=== PATIENT | female | born 1945 | race Caucasian/White ===

== ENCOUNTER 2017-04-19 07:58 | Emergency (ER) | payer MEDICARE, OTHER ==
[~2017-04-19] VITALS: Ht 165.1 cm; Wt 75.0 kg
[~2017-04-19 07:58] MED LIST: ASPIRIN 81M81 MG/TA2 PO; CO Q-1010 M1 PO; FLEXERIL5 MG PO; GLUCOPHAGE1000 MG PO; HYZAAR 12.5 MG-1 TAB PO; JANUVIA 100MG100 MG PO; MEGA RED PO; MOBIC15 MG PO; NATURE'S BLE1000 MCG PO; NORCO 325 MG-51 TAB PO; TENORMIN 2525 MG/TAB PO; ZETIA 10MG TAB10 MG PO
[2017-04-19 08:05] VITALS: BP 160/70; PULSE 62; TEMP 97.5
[2017-04-19] MEDS ORDERED: CRESTOR5 MG PO (08:30)
[2017-04-19] MEDS ORDERED: CYMBALTA 30MG30 MG PO (08:30)
[2017-04-19] MEDS ORDERED: CALCIUM 600MG+D1 TAB PO (08:31)
[2017-04-19] MEDS ORDERED: MEGA RED PO (08:32)
[2017-04-19] MEDS ORDERED: COENZYME Q-10100 M1 PO (08:34)
[2017-04-19] MEDS ORDERED: AMOXICILLIN 8751 TAB PO (08:35)
[2017-04-19] MEDS ORDERED: ASPIRIN 81M81 MG/TA2 PO (08:58)
[2017-04-19] MEDS ORDERED: TENORMIN 2525 MG/TAB PO (08:58)
[2017-04-19] MEDS ORDERED: GLUCOPHAGE XR750 MG PO (08:59)
[2017-04-19] MEDS ORDERED: JANUVIA 100MG100 MG PO ×2 (09:01→09:08)
[2017-04-19] MEDS ORDERED: COZAAR 25MG25 MG/TAB PO (09:06)
[2017-04-19] MEDS ORDERED: MOBIC15 MG PO (09:07)
[2017-04-19] MEDS ORDERED: NATURE'S BLE1000 MCG PO (09:08)
== END 2017-04-19 09:09 | disposition home or self-care (01) ==
LOC: COL.ER 07:58
DX: S01.511A Laceration without foreign body of lip, initial encounter (principal); I10 Essential (primary) hypertension; E78.5 Hyperlipidemia, unspecified; Z23 Encounter for immunization; Z98.890 Other specified postprocedural states; Z79.84 Long term (current) use of oral hypoglycemic drugs; Z79.82 Long term (current) use of aspirin; W54.0XXA Bitten by dog, initial encounter; Y92.009 Unspecified place in unspecified non-institutional (private) residence as the place of occurrence of the external cause

== ENCOUNTER → 2020-02-14 | Outpatient (CLI) | payer MEDICARE ==
[~2020-02-14] MED LIST changes: +AMOXICILLIN 8751 TAB PO; +CALCIUM 600MG+D1 TAB PO; +COENZYME Q-10100 M1 PO; +COZAAR 25MG25 MG/TAB PO; +CRESTOR5 MG PO; +CYMBALTA 30MG30 MG PO; +GLUCOPHAGE XR750 MG PO
== END ==
LOC: MC.RAD 10:15
DX: Z12.31 Encounter for screening mammogram for malignant neoplasm of breast (principal)

== ENCOUNTER → 2020-11-23 | Outpatient (CLI) | payer MEDICARE, OTHER | LOC: COL.VAS 07:44 | DX: I10 Essential (primary) hypertension (principal); I70.1 Atherosclerosis of renal artery ==

== ENCOUNTER → 2020-12-07 | Outpatient (CLI) | payer MEDICARE, OTHER | LOC: COL.RAD 10:34 | DX: Q89.9 Congenital malformation, unspecified (principal); I10 Essential (primary) hypertension; Z90.49 Acquired absence of other specified parts of digestive tract | CPT/HCPCS: Q9967 ==

== ENCOUNTER 2021-01-16 15:10 | Emergency (ER) | payer MEDICARE, OTHER ==
[~2021-01-16] VITALS: Ht 165.1 cm; Wt 76.4 kg
[2021-01-16 15:43] VITALS: TEMP 98.2
[2021-01-16 16:01] LABS: BASO % 0.7 % (0.0-2.0); EOS # 0.1 K/mm3 (0.0-0.7); EOS % 1.4 % (0-4.0); GRAN # 2.9 K/mm3 (1.4-6.5); GRAN % 50.5 % (42.2-75.2); HEMOGLOBIN 12.4 g/dl (12.5-16.0); LYMPH # 2.3 K/mm3 (1.2-3.4); LYMPH % 40.3 % (20.0-51.0); MEAN CELL VOLUME 87 fl (80.0-100.0); MEAN CORPUSCULAR HEMOGLOBIN 30 pg (27.0-31.0); MEAN CORPUSCULAR HGB CONC 35 g/dl (33.0-37.0); MEAN PLATELET VOLUME 9.3 fl (7.4-10.4); MONO # 0.4 K/mm3 (0.1-0.6); MONO % 6.9 % (1.7-9.3); PLATELET COUNT 264 K/mm3 (130-400); RED BLOOD COUNT 4.09 M/mm3 (4.10-5.30); REDCELL DISTRIBUTION WIDTH-CV 13.2 % (11.5-14.5)
[2021-01-16 16:02] LABS: HEMATOCRIT 35.7 % (37.0-47.0)
[2021-01-16 16:23] LABS: ALANINE AMINOTRANSFERASE 15 U/L (0-55); ALBUMIN 4.1 gm/dL (3.4-4.8); ANION GAP 9 mmol/L (7-16); AST,SGOT 15 U/L (5-34); BILIRUBIN,TOTAL 0.4 mg/dL (0.2-1.2); BLOOD UREA NITROGEN 20 mg/dL (10-20); CALCIUM 9.9 mg/dL (8.4-10.2); CARBON DIOXIDE 22 mmol/L (23-31); CHLORIDE 103 mmol/L (98-107); GLUCOSE 113 mg/dL (70-99); POTASSIUM 4.2 mmol/L (3.5-4.5); SODIUM 134 mmol/L (136-145); TOTAL PROTEIN 7.8 gm/dL (6.2-8.1)
[2021-01-16 16:31] LABS: TROPONIN-I < 0.010 ng/mL (0.00-0.033)
[2021-01-16 16:38] LABS: ALKALINE PHOSPHATASE 62 U/L (40-150)
[2021-01-16 17:40] VITALS: BP 180/80; PULSE 80
== END 2021-01-16 17:44 | disposition home or self-care (01) ==
LOC: COL.ER 15:10
PROVIDERS: Emergency Medicine
DX: I95.1 Orthostatic hypotension (principal); I10 Essential (primary) hypertension; E11.9 Type 2 diabetes mellitus without complications; G89.29 Other chronic pain; M54.9 Dorsalgia, unspecified; Z79.84 Long term (current) use of oral hypoglycemic drugs; Z79.899 Other long term (current) drug therapy
CPT/HCPCS: J7030

== ENCOUNTER → 2023-04-29 | Outpatient (CLI) | payer MEDICARE, OTHER ==
[~2023-04-29] MED LIST changes: +COREG12.5 MG; +ELIQUIS 5MG PO; +NORVASC 5MG5 MG/TAB PO
== END ==
LOC: MC.RAD 09:52
DX: Z12.31 Encounter for screening mammogram for malignant neoplasm of breast (principal)

== ENCOUNTER → 2023-05-29 | Outpatient (CLI) | payer MEDICARE, OTHER ==
[~2023-05-29] MED LIST changes: +Iohexol 300 - 10 ML VIAL ONE
== END ==
LOC: MHCPAIN 09:25
DX: M46.1 Sacroiliitis, not elsewhere classified (principal); M53.3 Sacrococcygeal disorders, not elsewhere classified; M54.50 Low back pain, unspecified
CPT/HCPCS: G0260; J0665; J1040; Q9967

== ENCOUNTER → 2023-06-17 | Outpatient (CLI) | payer MEDICARE, OTHER ==
[~2023-06-17] MED LIST changes: -Iohexol 300 - 10 ML VIAL ONE
== END ==
LOC: MHCPAIN 10:08
DX: M47.897 Other spondylosis, lumbosacral region (principal); M96.1 Postlaminectomy syndrome, not elsewhere classified
CPT/HCPCS: G0463

== ENCOUNTER → 2023-06-23 | Outpatient (CLI) | payer MEDICARE, OTHER ==
[~2023-06-23] MED LIST changes: +Atropine 1 MG/10 ML SYRINGE IV ONE; +Glycopyrrolate 0.2 MG/ML 1 ML VIAL ONE; +Iohexol 300 - 10 ML VIAL ONE; +Lidocaine PF 2% (20 MG/ML) 2 ML VIAL ONE; +ePHEDrine 50 MG/10 ML VIAL IV ONE
== END ==
LOC: MHCPAIN 11:07
DX: M54.17 Radiculopathy, lumbosacral region (principal); M54.50 Low back pain, unspecified; E11.9 Type 2 diabetes mellitus without complications; Z79.84 Long term (current) use of oral hypoglycemic drugs
CPT/HCPCS: J0461; J1100; Q9967

== ENCOUNTER → 2023-08-21 | Outpatient (CLI) | payer MEDICARE, OTHER ==
[~2023-08-21] MED LIST changes: -Atropine 1 MG/10 ML SYRINGE IV ONE; -Glycopyrrolate 0.2 MG/ML 1 ML VIAL ONE; -Iohexol 300 - 10 ML VIAL ONE; -Lidocaine PF 2% (20 MG/ML) 2 ML VIAL ONE; -ePHEDrine 50 MG/10 ML VIAL IV ONE
== END ==
LOC: MHCPAIN 09:11
DX: M47.817 Spondylosis without myelopathy or radiculopathy, lumbosacral region (principal); M54.50 Low back pain, unspecified

== ENCOUNTER → 2023-08-25 | Outpatient (CLI) | payer MEDICARE, OTHER | LOC: MHCPAIN 10:00 | DX: M54.17 Radiculopathy, lumbosacral region (principal); Z98.1 Arthrodesis status; M41.86 Other forms of scoliosis, lumbar region; M47.896 Other spondylosis, lumbar region | CPT/HCPCS: G0463 ==

== ENCOUNTER → 2023-09-11 | Outpatient (CLI) | payer MEDICARE, OTHER | LOC: MHCPAIN 09-10 17:51 | DX: M47.817 Spondylosis without myelopathy or radiculopathy, lumbosacral region (principal); M54.50 Low back pain, unspecified; Z98.1 Arthrodesis status | CPT/HCPCS: J0665 ==

== ENCOUNTER → 2023-10-16 | Outpatient (CLI) | payer MEDICARE ==
[~2023-10-16] MED LIST changes: +ALEVE 220MG220 MG PO; +COREG 25MG25 MG/TAB PO; +COZAAR100 MG PO; +GLUCOPHAGE500 MG/TAB PO; +KRILL OIL 5001 EACH PO; +Lidocaine PF 2% (20 MG/ML) 5 ML VIAL ONE; +Midazolam 2 MG/2 ML VIAL ONE; +PREVAGEN PO; +PRILOSEC 20MG20 MG PO; +TYLENOL PM EXTR1 TA1 PO; +fentaNYL 50 MCG/ML 2 ML VIAL ONE
== END ==
LOC: MHCPAIN 08:27
DX: M47.817 Spondylosis without myelopathy or radiculopathy, lumbosacral region (principal); M54.50 Low back pain, unspecified; Z98.1 Arthrodesis status
CPT/HCPCS: J0665; J2250; J3010

== ENCOUNTER → 2023-10-20 | Outpatient (CLI) | payer MEDICARE, OTHER ==
[~2023-10-20] MED LIST changes: +Iohexol 300 - 10 ML VIAL IV ONE; -Lidocaine PF 2% (20 MG/ML) 5 ML VIAL ONE; -Midazolam 2 MG/2 ML VIAL ONE; +Triamcinolone 40 MG/ML 1 ML VIAL IJ ONE; -fentaNYL 50 MCG/ML 2 ML VIAL ONE
== END ==
LOC: COL.RAD 08:35
DX: M79.671 Pain in right foot (principal); M79.672 Pain in left foot
CPT/HCPCS: J0665; J3301; Q9967

== ENCOUNTER 2023-10-23 00:46 | Emergency (ER) | payer MEDICARE, OTHER ==
[~2023-10-23] VITALS: Ht 165.1 cm; Wt 75.0 kg
[~2023-10-23 00:46] MED LIST changes: -ALEVE 220MG220 MG PO; -COREG 25MG25 MG/TAB PO; -COZAAR100 MG PO; -GLUCOPHAGE500 MG/TAB PO; -Iohexol 300 - 10 ML VIAL IV ONE; -KRILL OIL 5001 EACH PO; -PREVAGEN PO; -PRILOSEC 20MG20 MG PO; -TYLENOL PM EXTR1 TA1 PO; -Triamcinolone 40 MG/ML 1 ML VIAL IJ ONE
[2023-10-23 00:55] VITALS: TEMP 98.1
[2023-10-23] MEDS ORDERED: GLUCOPHAGE500 MG/TAB PO (01:10)
[2023-10-23 01:11] LABS: BASO % 0.2 % (0.0-2.0); EOS % 0.4 % (0.0-4.0); GRAN % 61.5 % (42.2-75.2); HEMOGLOBIN 13.2 g/dl (12.5-16.0); LYMPH % 30.2 % (20.0-51.0); MEAN CELL VOLUME 92 fl (80.0-100.0); MEAN CORPUSCULAR HEMOGLOBIN 33 pg (27-31); MEAN CORPUSCULAR HGB CONC 36 g/dl (33.0-37.0); MEAN PLATELET VOLUME 9.4 fl (7.4-10.4); MONO # 0.7 K/mm3 (0.1-0.6); MONO % 7.2 % (1.7-9.3); PLATELET COUNT 319 K/mm3 (130-400); RED BLOOD COUNT 4.01 M/mm3 (4.10-5.30); REDCELL DISTRIBUTION WIDTH-CV 13.3 % (11.5-14.5)
[2023-10-23] MEDS ORDERED: COREG 25MG25 MG/TAB PO (01:11)
[2023-10-23] MEDS ORDERED: COZAAR100 MG PO (01:12)
[2023-10-23 01:13] LABS: HEMATOCRIT 36.9 % (37.0-47.0)
[2023-10-23] MEDS ORDERED: KRILL OIL 5001 EACH PO (01:15)
[2023-10-23] MEDS ORDERED: TYLENOL PM EXTR1 TA1 PO (01:16)
[2023-10-23] MEDS ORDERED: PRILOSEC 20MG20 MG PO (01:17)
[2023-10-23] MEDS ORDERED: PREVAGEN PO (01:18)
[2023-10-23] MEDS ORDERED: ALEVE 220MG220 MG PO (01:19)
[2023-10-23 01:28] LABS: ALANINE AMINOTRANSFERASE 49 U/L (0-55); ALBUMIN 4.2 g/dL (3.4-4.8); ALKALINE PHOSPHATASE 84 U/L (40-150); ANION GAP 14 mmol/L (7-16); AST,SGOT 64 U/L (5-34); BILIRUBIN,TOTAL 0.2 mg/dL (0.2-1.2); BLOOD UREA NITROGEN 17 mg/dL (10-20); CALCIUM 10.3 mg/dL (8.4-10.2); CHLORIDE 105 mEq/L (98-107); CREATININE, serum 0.64 mg/dL (0.57-1.11); GLUCOSE 121 mg/dL (70-99); SODIUM 136 mEq/L (136-145); TOTAL PROTEIN 8.7 g/dl (6.2-8.1)
[2023-10-23 01:30] LABS: POTASSIUM 4.7 mEq/L (3.5-4.5)
[2023-10-23 01:34] LABS: TROPONIN-I < 0.010 ng/mL (0.00-0.033)
[2023-10-23] MEDS ORDERED: Lidocaine 2% Viscous 15 ML UNIT DOSE MM ONE (02:00)
[2023-10-23] MEDS ORDERED: Famotidine 20 MG TAB PO ONE (02:00)
[2023-10-23] MEDS ORDERED: Mag/Al Hydrox/Simeth Susp 30 ML CUP PO ONE (02:00)
[2023-10-23] MEDS ORDERED: Acetaminophen 325 MG TAB PO ONE (02:00)
[2023-10-23 02:48] VITALS: BP 132/65; PULSE 68
== END 2023-10-23 02:48 | disposition home or self-care (01) ==
LOC: COL.ER 00:46
PROVIDERS: Nurse Practitioner Primary Care
DX: R07.9 Chest pain, unspecified (principal); R20.2 Paresthesia of skin

== ENCOUNTER → 2023-12-17 | Outpatient (CLI) | payer MEDICARE, OTHER ==
[~2023-12-17] MED LIST changes: +ALEVE 220MG220 MG PO; +COREG 25MG25 MG/TAB PO; +COZAAR100 MG PO; +GLUCOPHAGE500 MG/TAB PO; +KRILL OIL 5001 EACH PO; +PREVAGEN PO; +PRILOSEC 20MG20 MG PO; +TYLENOL PM EXTR1 TA1 PO
== END ==
LOC: MHCPAIN 09:46
DX: M41.86 Other forms of scoliosis, lumbar region (principal); M96.1 Postlaminectomy syndrome, not elsewhere classified; M54.17 Radiculopathy, lumbosacral region; I10 Essential (primary) hypertension; E11.9 Type 2 diabetes mellitus without complications; Z79.84 Long term (current) use of oral hypoglycemic drugs
CPT/HCPCS: G0463